=== PATIENT | male | born 1965 | race Caucasian/White ===

== ENCOUNTER 2018-05-18 21:58 | Inpatient (IN) | payer MEDICAID ==
[~2018-05-18] VITALS: Ht 170.2 cm; Wt 120.2 kg
--- NOTE | 2018-05-18 21:58 | NUR ---
PT KATHE ALS. TAKEN TO BED 11
--- NOTE | 2018-05-18 21:58 | NUR ---
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 SKIN SIGNS NORMAL, REPORTS NAUSEA AND SOB. PER EMS, PT WAS GIVEN ASA AND NTG, PT REPORTS MILD RELIEF. ALL LUNG SOUNDS CBTA, 18RR EVEN AND UNLABORED. PMH: KY X5, CVA WITH NO DEFICITS, HTN, HLD, 5150
[2018-05-18 22:00] VITALS: BP 164/112
[2018-05-18] MEDS ORDERED: NACL 0.9% 1,000 ML IV ONE (22:05)
--- NOTE | 2018-05-18 22:12 | NUR ---
X-Ray at bedside.
[2018-05-18] MEDS ORDERED: METO25TA PO (22:13)
[2018-05-18] MEDS ORDERED: BENA20TA PO (22:13)
[2018-05-18] MEDS ORDERED: ISOS20TA13 PO (22:13)
[2018-05-18] MEDS ORDERED: NITR0.4T2 SL (22:13)
[2018-05-18] MEDS ORDERED: FURO-570 PO (22:13)
[2018-05-18] MEDS ORDERED: ASPI81CT89 PO (22:13)
[2018-05-18 22:42] LABS: BASOPHILS % (AUTO) 0.5 % (0.0-2.0); EOSINOPHILS # (AUTO) 0.2 K/uL (0-0.4); EOSINOPHILS % (AUTO) 2.5 % (0.0-4.0); HEMATOCRIT 50.7 % (36-52); HEMOGLOBIN 17.2 g/dL (12.0-18.0); LYMPHOCYTES # (AUTO) 2.6 K/uL (2.0-11.5); LYMPHOCYTES % (AUTO) 37.3 % (20.5-51.1); MEAN CORPUSCULAR HEMOGLOBIN 30 pg (27-31); MEAN CORPUSCULAR HGB CONC 34 g/dL (33-37); MEAN CORPUSCULAR VOLUME 89.3 fL (80-94); MONOCYTES # (AUTO) 0.7 K/uL (0.8-1.0); MONOCYTES % (AUTO) 9.8 % (1.7-9.3); NEUTROPHILS # (AUTO) 3.5 K/uL (1.8-7.7); NEUTROPHILS % (AUTO) 49.9 % (42.2-75.2); PLATELET COUNT (AUTO) 308 K/uL (140-450); RED BLOOD CELL COUNT(AUTO) 5.68 MIL/uL (4.20-6.10); RED CELL DISTRIBUTION WIDTH 14.1 % (11.6-13.7)
[2018-05-18 22:51] LABS: CARBON DIOXIDE 26.5 mmol/L (21-32); CREATININE 1.1 mg/dL (0.7-1.3); POTASSIUM 3.5 mmol/L (3.5-5.1)
[2018-05-18] MEDS ORDERED: MORPHINE SULFATE 4 MG/ML SYR IVP ONE (22:55)
[2018-05-18 22:57] LABS: ALBUMIN 4.1 g/dL (3.4-5.0); TOTAL BILIRUBIN 1.1 mg/dL (0.0-1.0)
--- NOTE | 2018-05-18 23:09 | NUR ---
Dr. Sr evaluating patient at bedside.
--- NOTE | 2018-05-18 23:40 | NUR ---
Patient will be admitted [facility]. Admited to TELE . Will go to room 104B. Belongings list completed. Report to PAMELLA DO.
[2018-05-18 23:42] VITALS: BP 163/115
--- NOTE | 2018-05-18 23:42 | NUR ---
RECEIVED REPORT FROM DAYSHIFT NURSE AT BEDSIDE FOR CONTINUITY OF CARE. PT AAOX4. NO SOB NO S/S OF DISTRESS ON RA. IV NOTED RAC 18G NS 60ML/HR. PT ORIENTED TO ROOM PT ABLE TO AMBULATE. BED LOWERED CALL LIGHT WITHIN REACH WILL CONTINUE TO MONITOR.
[2018-05-18] MEDS ORDERED: DOCUSATE SODIUM 100 MG GELCAP PO PRN (23:45)
[2018-05-18] MEDS ORDERED: ZOLPIDEM 5 MG TAB PO PRN (23:45)
[2018-05-18] MEDS ORDERED: NITROGLYCERIN 0.4 MG TAB SL PRN (23:45)
[2018-05-18] MEDS ORDERED: ACETAMINOPHEN 325 MG TAB PO PRN (23:45)
[2018-05-18] MEDS ORDERED: HYDROcodone/APAP 5/325 MG 1 TAB TAB PO PRN (23:45)
[2018-05-18] MEDS ORDERED: ONDANSETRON 4 MG/2 ML VIAL IM/IVP PRN (23:45)
[2018-05-18] MEDS ORDERED: LORazepam 2 MG/ML VIAL IM/IVP PRN (23:45)
[2018-05-19] MEDS ORDERED: METOPROLOL 25 MG TAB PO SCH
[2018-05-19 00:20] LABS: BARBITURATE, URINE NEG. ng/ml (NEG <=200); BENZODIAZEPINE, URINE NEG. ng/mL (NEG <=200); CANNABINOID, URINE NEG. ng/mL (NEG <=50); COCAINE, URINE NEG. ng/mL (NEG <=300); OPIATE, URINE NEG. ng/mL (NEG <=2000); PHENCYCLIDINE SCREEN,URINE NEG. ng/mL (NEG <=25)
[2018-05-19 00:20] LABS: MAGNESIUM 2.3 mg/dL (1.8-2.4); PHOSPHORUS 4.3 mg/dL (2.5-4.9); THYROID STIMULATING HORMONE 2.22 uIU/mL (0.34-3.74)
[2018-05-19 00:26] LABS: APPEARANCE,URINE CLEAR (CLEAR); BILIRUBIN,URINE NEGATIVE (NEGATIVE); BLOOD, URINE 3+ (NEGATIVE); COLOR,URINE YELLOW (YELLOW); LEUKOCYTE ESTERASE ,URINE NEGATIVE (NEGATIVE); NITRITE, URINE NEGATIVE (NEGATIVE); UGLUCOSE NEGATIVE (NEGATIVE)
[2018-05-19 00:28] LABS: RBC,URINE 0-5 (RARE) /HPF (0-5); WBC,URINE 0-5 (RARE) /HPF (0-5)
[2018-05-19] MEDS: NACL 0.9% 1,000 ML IV SCH ×2 (00:30→16:30)
--- NOTE | 2018-05-19 00:30 | NUR ---
POSITIVE EFFECT OF MORPHINE NOTED PT SLEEPING IN BED BUT AROUSABLE TO NAME. V/S FOLLOWS T 97.9 P 78 R 20 B/P 123/97. 02 93% WITH R/A.
[2018-05-19] MEDS: MORPHINE SULFATE 2 MG/ML SYR IVP PRN ×3 (00:31→23:11)
[2018-05-19] MEDS ORDERED: PNEUMOCOCCAL VACCINE 23 MCG/0.5 ML VIAL IMVAC SCH (01:20)
--- NOTE | 2018-05-19 01:31 | NUR ---
ADMIN PAIN MED 1 HR AGO. PT IS CURRENTLY SLEEPING NO SOB NO S/S OF DISTRESS ON RA. WILL CONTINUE TO MONITOR.
--- NOTE | 2018-05-19 02:55 | NUR ---
PT GOT UP FROM HIS BED AND DECIDED TO WALK THE SMITH TO FIND HIS NURSE. PT ESCORTED BACK TO HIS ROOM WHERE HE WAS HOOKED UP TO TELEMONITORING AGAIN. PT C/O OF 7/10 H/A, GIVEN TORADOL IM IN L DELTOID. PT COUNSELED TO USE CALL BUTTON RATHER THAN ROAM THE SMITH LOOKING FOR ASSISTANCE PT VERBALIZED UNDERSTANDING.
[2018-05-19 04:00] VITALS: BP 170/127
[2018-05-19] MEDS ORDERED: ENALAPRILAT 2.5 MG/2 ML VIAL IVP SCH (05:30)
[2018-05-19] MEDS: BENAZEPRIL 20 MG TAB PO SCH (06:45)
[2018-05-19] MEDS: METOPROLOL 25 MG TAB PO SCH ×2 (06:45→23:01)
--- NOTE | 2018-05-19 07:13 | NUR ---
ENDORSED REPORT TO DAYSHIFT NURSE AT BEDSIDE FOR CONTINUITY OF CARE.
--- NOTE | 2018-05-19 07:14 | NUR ---
RECEIVED REPORT FROM PM NURSE AT BEDSIDE. PT AOX4, AWAKE AND LYING ON HIS BED COMFORTABLY. PT COOPERATIVE AND GOOD COMMUNICATION. PT AMBULATORY, SKIN INTACT. DENIES ANY CHEST PAIN AT THIS TIME. HAS LF AC 20 G, IVF INFUSING AT 60 ML/HR. BED AT LOWER POSITION. PLACED CALL LIGHT WITHIN PT REACH. INFORMED HIM TO USE CALL LIGHT FOR ANY HELP. UPDATED BOARD AND INTRODUCED SELF. WILL CONTINUE TO MONITOR PT.
[2018-05-19 07:17] LABS: BASOPHILS # (AUTO) 0.1 K/uL (0.00-0.22); BASOPHILS % (AUTO) 0.8 % (0.0-2.0); EOSINOPHILS # (AUTO) 0.2 K/uL (0-0.4); EOSINOPHILS % (AUTO) 2.7 % (0.0-4.0); HEMATOCRIT 48.9 % (36-52); HEMOGLOBIN 16.9 g/dL (12.0-18.0); LYMPHOCYTES # (AUTO) 2.6 K/uL (2.0-11.5); MEAN CORPUSCULAR HEMOGLOBIN 31 pg (27-31); MEAN CORPUSCULAR HGB CONC 35 g/dL (33-37); MONOCYTES # (AUTO) 0.6 K/uL (0.8-1.0); NEUTROPHILS # (AUTO) 3.4 K/uL (1.8-7.7); NEUTROPHILS % (AUTO) 49.5 % (42.2-75.2); PLATELET COUNT (AUTO) 289 K/uL (140-450); RED CELL DISTRIBUTION WIDTH 13.8 % (11.6-13.7); WHITE BLOOD COUNT (AUTO) 6.9 K/uL (4.8-10.8)
[2018-05-19 07:26] LABS: CHOL/HDL RATIO 3.5 (1-4.5)
[2018-05-19 07:52] LABS: CARBON DIOXIDE 25.8 mmol/L (21-32); CREATININE 0.9 mg/dL (0.7-1.3); POTASSIUM 3.8 mmol/L (3.5-5.1)
[2018-05-19 08:00] VITALS: BP 178/121
[2018-05-19] MEDS: ATORVASTATIN 20 MG TAB PO SCH (08:36)
[2018-05-19] MEDS: ASPIRIN 81 MG TAB.CHEW PO SCH (08:37)
[2018-05-19] MEDS: FUROSEMIDE 40 MG TAB PO SCH (08:37)
[2018-05-19] MEDS: ISOSORBIDE DINITRATE 20 MG TAB PO SCH ×3 (08:37→17:00)
--- NOTE | 2018-05-19 09:00 | NUR ---
ADMINISTERED MEDS ORDERED. TOLERATED WELL. NO COMPLAIN OF ANY KIND OF PAIN. PT WALKED AROUND A BIT, COMPLAIN OF DIZZINESS. INFORMED HIM THAT SUDDEN CHANGE IN BP MIGHT CAUSE IT. INFORMED HIM TO ASK FOR HELP IF HE NEEDS TO GET UP , MIGHT FALL SUDDENLY DUE TO PRESSURE CHANGE. VERBALIZED UNDERSTANDING. WILL CONTINUE TO MONITOR PT.
--- NOTE | 2018-05-19 10:30 | NUR ---
REVEIVED CALL FROM US TECH, PT TO KEEP NPO FOR US OF ABD AND KIDNEYS. INFORMED PT THAT WILL BE KEPT NPO FOR US , NEEDS EMPTY STOMACH. INSTRUCTED NOT TO DRINK OR EAT ANYTHING UNTIL US IS DONE. VERBALISED UNDERSTANDING. COMPLAINING OF BEAUCHAMP. WAITING FOR MD ORDER FOR TORADOL. WILL CONTINUE TO MONITOR PT.
[2018-05-19] MEDS: KETOROLAC 30 MG/ML VIAL IM PRN ×2 (11:10→18:30)
[2018-05-19 12:00] VITALS: BP 127/86
--- NOTE | 2018-05-19 12:29 | NUR ---
CHECKED ON PT. WITH US TECH. PT KEPT NPO FOR ABD US. NO SIGN OF DISTRESS NOTED. WILL CONTINUE TO MONITOR PT.
--- NOTE | 2018-05-19 14:52 | NUR ---
CHECKED ON PT. COMPLAINING OF BAD HEADACHE, NOTIFIED. STATES TO GIVE NORCO . ADMINISTERED NORCO FOR PAIN MANAGEMENT FOR PT. INFORMED THAT WILL REASSESS HIS PAIN LEVEL IN AN HOUR. VERBALIZED UNDERSTANDING. WILL CONTINUE TO MONITOR PT AND ASSESS HIS PAIN .
[2018-05-19 16:00] VITALS: BP 114/81
[2018-05-19] MEDS ORDERED: APAP/BUTAL/CAFF 325/50/40 MG 1 TAB PO PRN (17:55)
--- NOTE | 2018-05-19 18:30 | NUR ---
ADMINISTERED TORADOL FOR PAIN TO PT. PT REFUSED ISOSORBIDE DINITRATE.IVF INFUSING WELL. WILL CONTINUE TO MONITOR PT.
--- NOTE | 2018-05-19 19:30 | NUR ---
RECEVED ENDORSEMENT FORM RN DAYSHIFT NURSE AT BEDSIDE FOR CONTINUITY OF CARE, PT IN STABLE CONDITION.
--- NOTE | 2018-05-19 19:30 | NUR ---
ENDORSED PT TO PM NURSE AT BEDSIDE. PT IN STABLE CONDITION.
[2018-05-19 20:00] VITALS: BP 143/95
--- NOTE | 2018-05-19 21:00 | NUR ---
PT IN BED AOX4 T 98.5 P 67 R 18 B/P 143/95 02 94 WITH R/A . PT GIVEN LOPRESSOR ORDERED.
--- NOTE | 2018-05-19 23:15 | NUR ---
PT C/O 02/05 PAIN HEAD ACHE, GIVEN MORPHINE IVP WILL MONITOR RESULTS
[2018-05-20] VITALS: BP 123/97
[2018-05-20] MEDS: KETOROLAC 30 MG/ML VIAL IM PRN ×2 (02:45→11:06)
[2018-05-20 04:00] VITALS: BP 151/87
[2018-05-20 06:56] LABS: BASOPHILS % (AUTO) 0.5 % (0.0-2.0); EOSINOPHILS # (AUTO) 0.2 K/uL (0-0.4); EOSINOPHILS % (AUTO) 3.9 % (0.0-4.0); HEMATOCRIT 45.8 % (36-52); HEMOGLOBIN 15.7 g/dL (12.0-18.0); LYMPHOCYTES # (AUTO) 2.1 K/uL (2.0-11.5); LYMPHOCYTES % (AUTO) 37.9 % (20.5-51.1); MEAN CORPUSCULAR HEMOGLOBIN 31 pg (27-31); MEAN CORPUSCULAR HGB CONC 34 g/dL (33-37); MEAN CORPUSCULAR VOLUME 89.3 fL (80-94); MONOCYTES # (AUTO) 0.5 K/uL (0.8-1.0); MONOCYTES % (AUTO) 9.8 % (1.7-9.3); NEUTROPHILS # (AUTO) 2.6 K/uL (1.8-7.7); NEUTROPHILS % (AUTO) 47.9 % (42.2-75.2); PLATELET COUNT (AUTO) 251 K/uL (140-450); RED BLOOD CELL COUNT(AUTO) 5.13 MIL/uL (4.20-6.10); RED CELL DISTRIBUTION WIDTH 13.9 % (11.6-13.7); WHITE BLOOD COUNT (AUTO) 5.5 K/uL (4.8-10.8)
[2018-05-20 07:04] LABS: ANION GAP 5.5 (8-16); POTASSIUM 3.5 mmol/L (3.5-5.1)
--- NOTE | 2018-05-20 07:15 | NUR ---
PT REPORT RECEIVED AT BEDSIDE FROM CLOTH MENDER NURSE. PT IS ALERT AND AWAKE, NO S/S OF DISTRESS NOTED. PT IS ON ROOM AIR. IV SITE NOTED ON R AC, GAUGE 18, SALINE LOCK. SKIN INTACT. CALL LIGHT WITHIN REACH, BED IN LOW POSITION. WILL CONTINUE TO MONITOR.
[2018-05-20 08:00] VITALS: BP 179/128
[2018-05-20] MEDS: METOPROLOL 25 MG TAB PO SCH (08:23)
[2018-05-20] MEDS: ATORVASTATIN 20 MG TAB PO SCH (08:23)
[2018-05-20] MEDS: FUROSEMIDE 40 MG TAB PO SCH (08:24)
[2018-05-20] MEDS: BENAZEPRIL 20 MG TAB PO SCH (08:24)
[2018-05-20] MEDS: ASPIRIN 81 MG TAB.CHEW PO SCH (08:25)
--- NOTE | 2018-05-20 08:31 | NUR ---
MD AWARE OF PT'S ELEVATED BP. SCHEDULED BP MEDS ADMINISTERED, WILL RECHECK BP IN 30 MINS.
[2018-05-20] MEDS ORDERED: ISOS30TE PO (08:37)
--- NOTE | 2018-05-20 08:59 | NUR ---
PATIENT HAS BEEN SCREENED AND CATEGORIZED HIGH NUTRITION RISK. PATIENT WILL BE SEEN WITHIN 1-2 DAYS OF ADMISSION. 05/20/[address]
[2018-05-20] MEDS ORDERED: ISOSORBIDE MONONITRATE 30 MG TABER PO SCH (09:00)
--- NOTE | 2018-05-20 10:00 | NUR ---
PT'S BP IS 167/100 AT THIS TIME. NOTIFIED. WILL RECHECK BP AFTER PT IS DONE WITH ECHO.
[2018-05-20] MEDS ORDERED: ATOR20TA40 PO (10:24)
--- NOTE | 2018-05-20 10:45 | NUR ---
PT'S BP IS 154/98 AT THIS TIME. NOTIFIED.
[2018-05-20 12:00] VITALS: BP 124/88
--- NOTE | 2018-05-20 12:08 | NUR ---
Concurrent review faxed to [facility].
[2018-05-20] MEDS ORDERED: INFLUENZA VIRUS VACCINE QUAD 0.5 ML SYR IMVAC PRN ×2 (13:20→13:35)
--- NOTE | 2018-05-20 14:30 | NUR ---
PT DISCHARGED. VITAL SIGNS ARE STABLE, PT IN NO DISTRESS. DISCHARGE DOCUMENTS AND PRESCRIPTIONS GIVEN, SIGNATURES OBTAINED. PT VERBALIZED UNDERSTANDING OF DISCHARGE INSTRUCTIONS. IV SITE DC'D, WRIST BANDS REMOVED. ADMINISTERED FLU AND PNEUMO VACCINES. PT LEFT WITH ALL HIS BELONGINGS. PT GIVEN A BUS PASS FOR TRANSPORTATION. RN WALKED PT OUT OF THE FACILITY AND DIRECTED TO THE BUS STOP.
--- NOTE | 2018-05-21 07:20 | NUR ---
DISCHARGE SUMMARY FAXED TO [facility] [phone]
== END 2018-05-20 14:30 | disposition home or self-care (01) | DRG 203 ==
LOC: MED 21:58 → MTU 23:19
PROVIDERS: ADMIT General Practice; ATTEND General Practice
PROC: 3E02340 Introduction of Influenza Vaccine into Muscle, Percutaneous Approach (ICD-10-PCS; principal; 2018-05-20)
PROC: 3E0234Z Introduction of Serum, Toxoid and Vaccine into Muscle, Percutaneous Approach (ICD-10-PCS; 2018-05-20)
DX: M94.0 Chondrocostal junction syndrome [Tietze] (principal); N17.0 Acute kidney failure with tubular necrosis; E43 Unspecified severe protein-calorie malnutrition; I11.9 Hypertensive heart disease without heart failure; E86.0 Dehydration; Z68.41 Body mass index [BMI] 40.0-44.9, adult; I25.10 Atherosclerotic heart disease of native coronary artery without angina pectoris; Z86.73 Personal history of transient ischemic attack (TIA), and cerebral infarction without residual deficits; E78.5 Hyperlipidemia, unspecified; Z90.49 Acquired absence of other specified parts of digestive tract; E66.01 Morbid (severe) obesity due to excess calories; F43.10 Post-traumatic stress disorder, unspecified; M17.11 Unilateral primary osteoarthritis, right knee; Z83.3 Family history of diabetes mellitus; Z81.8 Family history of other mental and behavioral disorders; I25.2 Old myocardial infarction; Z95.5 Presence of coronary angioplasty implant and graft; Z96.652 Presence of left artificial knee joint; Z23 Encounter for immunization; Z88.8 Allergy status to other drugs, medicaments and biological substances; Z82.49 Family history of ischemic heart disease and other diseases of the circulatory system; Z60.2 Problems related to living alone
CPT/HCPCS: 36415; 71045; 76705; 76770; 80048; 80053; 80305; 81001; 83036; 83690; 83735; 83880; 84100; 84134; 84443; 84484; 85025; 85610; 85730; 87081; 90658; 90732; 93005; 96361; 96374; 99285; J1885; J2270; J3490; J7030; Q0092